=== PATIENT | male | born 1985 | race Caucasian/White ===

== ENCOUNTER → 2025-07-30 | Day surgery (SDC) | payer BC ==
[2025-07-29 08:42] LABS: BASOPHILS % 0.3 % (0.0-1.0); EOSINOPHILS % 8.9 % (0.0-6.0); LYMPHOCYTES % 31.0 % (18.0-39.1); MONOCYTES % 8.3 % (4.4-11.3); NEUTROPHILS % 51.3 % (38.7-80.0); RED CELL DISTRIBUTION WIDTH 12.5 % (11.7-14.4)
[~2025-07-30] MED LIST: FENTANYL CITRATE/PF 100MCG/2 ML INJ ONE; FOLIC ACID PO; GLUCAGON FOR INJ 1 MG VIAL ONE; HYOSCYAMINE SULFATE 0.5 MG/ML INJ ONE; METHOTREXATE2.5 MG PO; MIDAZOLAM HCL 2 MG/2 ML VIAL ONE; ONDANSETRON HCL INJ 2MG/ML 2ML 2 MG/ML VIAL ONE; PROPOFOL IV EMULSION 10 MG/ML 20 ML VIAL ONE
[2025-07-30] MEDS: LACTATED RINGER'S 1,000 ML BAG IV ONE (11:49)
[2025-07-30 13:30] VITALS: BP 130/96; PULSE 95; RESP 16; TEMP 97.3; O2SAT 100
== END | disposition home or self-care (01) ==
LOC: OR 11:00
PROVIDERS: ATTEND Internal Medicine Gastroenterology
DX: K20.0 Eosinophilic esophagitis (principal); K22.82 Esophagogastric junction polyp; K29.50 Unspecified chronic gastritis without bleeding; K62.5 Hemorrhage of anus and rectum; K44.9 Diaphragmatic hernia without obstruction or gangrene; K59.09 Other constipation; K64.8 Other hemorrhoids; K63.89 Other specified diseases of intestine; Z01.810 Encounter for preprocedural cardiovascular examination; Z01.812 Encounter for preprocedural laboratory examination; Z79.899 Other long term (current) drug therapy
CPT/HCPCS: 36415; 43239; 43251; 45380; 85025; 93005; J1610; J1980; J2250; J2405; J2470; J2704; J3010; J7121; 45378